=== PATIENT | female | born 1985 | race Asian ===

== ENCOUNTER 2016-05-01 11:15 | Inpatient (IN) | payer SELFPAY ==
[~2016-05-01] VITALS: Ht 157.5 cm; Wt 72.6 kg
[2016-05-01] MEDS ORDERED: LACTATED RINGERS 1,000 ML IV SCH (11:34)
[2016-05-01] MEDS ORDERED: MORPHINE SULFATE 10 MG/ML SYR IVP PRN (11:35)
[2016-05-01] MEDS ORDERED: CARBOPROST 250 MCG/ML AMP IM PRN (11:35)
[2016-05-01] MEDS ORDERED: OXYTOCIN 10 UNITS/ML VIAL IM SCH (11:35)
[2016-05-01] MEDS ORDERED: METHYLERGONOVINE 0.2 MG/ML AMP IM PRN ×2 (11:35→18:35)
[2016-05-01] MEDS ORDERED: PROMETHAZINE 25 MG/ML VIAL IVP PRN (11:35)
[2016-05-01] MEDS ORDERED: MORPHINE SULFATE 10 MG/ML SYR ONE (11:46)
[2016-05-01] MEDS ORDERED: PROMETHAZINE 25 MG/ML VIAL ONE (11:46)
[2016-05-01] MEDS ORDERED: ROPIVACAINE 0.2%/NS PREMIX 250 ML EPI ONE (12:05)
[2016-05-01 12:19] LABS: BASOPHILS # (AUTO) 0.1 K/uL (0.00-0.22); BASOPHILS % (AUTO) 1.1 % (0.0-2.0); EOSINOPHILS # (AUTO) 0.1 K/uL (0-0.4); EOSINOPHILS % (AUTO) 0.7 % (0.0-4.0); HEMATOCRIT 35.8 % (36-48); HEMOGLOBIN 11.8 g/dL (12.0-16.0); LYMPHOCYTES # (AUTO) 1.7 K/uL (2.5-16.5); LYMPHOCYTES % (AUTO) 13.1 % (20.5-51.1); MEAN CORPUSCULAR HEMOGLOBIN 29 pg (27-31); MEAN CORPUSCULAR HGB CONC 33 g/dL (33-37); MEAN CORPUSCULAR VOLUME 89 fL (80-94); MONOCYTES % (AUTO) 7.7 % (1.7-9.3); NEUTROPHILS % (AUTO) 77.4 % (42.2-75.2); PLATELET COUNT (AUTO) 268 K/uL (140-450); RED BLOOD CELL COUNT(AUTO) 4.04 MIL/uL (4.20-5.40); WHITE BLOOD COUNT (AUTO) 12.9 K/uL (4.8-10.8)
[2016-05-01 12:31] VITALS: BP 103/62
[2016-05-01 12:36] LABS: CALCIUM 8.4 mg/dL (8.5-10.1); CARBON DIOXIDE 27.2 mmol/L (21-32); CREATININE 0.7 mg/dL (0.6-1.3); POTASSIUM 3.2 mmol/L (3.5-5.1)
[2016-05-01 12:41] LABS: HIV RAPID SCREEN NON-REACTIVE (NON REACTIV)
[2016-05-01 12:43] LABS: ALBUMIN 2.5 g/dL (3.4-5.0); TOTAL BILIRUBIN 0.2 mg/dL (0.0-1.0); TOTAL PROTEIN, SERUM 6.4 g/dL (6.4-8.2)
[2016-05-01] MEDS ORDERED: OXYTOCIN 20 UNITS/LR PREMIX 1,000 ML IV SCH (16:00)
[2016-05-01] MEDS ORDERED: OXYTOCIN 10 UNITS/ML VIAL ONE (17:09)
[2016-05-01] MEDS ORDERED: OXYTOCIN 20 UNITS/LR PREMIX 1,000 ML IV ONE (17:09)
[2016-05-01 18:31] LABS: APPEARANCE,URINE CLEAR (CLEAR); BILIRUBIN,URINE NEGATIVE (NEGATIVE); BLOOD, URINE NEGATIVE (NEGATIVE); COLOR,URINE YELLOW (YELLOW); LEUKOCYTE ESTERASE ,URINE NEGATIVE (NEGATIVE); NITRITE, URINE NEGATIVE (NEGATIVE); PROTEIN,URINE TRACE (NEGATIVE); UGLUCOSE NEGATIVE (NEGATIVE); UROBILINOGEN,URINE 0.2 EU/dL (0.2 - 1)
[2016-05-01] MEDS ORDERED: TEMAZEPAM 15 MG CAP PO PRN (18:35)
[2016-05-01] MEDS ORDERED: oxyCODONE/APAP 5/325 MG 1 TAB TAB PO PRN (18:35)
[2016-05-01] MEDS ORDERED: WITCH HAZEL 40 PAD PACKAGE TP PRN (18:35)
[2016-05-01] MEDS ORDERED: BENZOCAINE/MENTHOL 20%-0.5% 60 GM CAN TP PRN (18:35)
[2016-05-01] MEDS ORDERED: MEASLES, MUMPS, AND RUBELLA 1 VIAL SQVAC PRN (18:35)
[2016-05-01] MEDS ORDERED: IBUPROFEN 800 MG TAB PO PRN (18:35)
[2016-05-01 18:45] LABS: BACTERIA,URINE RARE /HPF (None Seen); RBC,URINE 0-5 (RARE) /HPF (0-5); SQUAMOUS EPITHELIAL CELL,UR RARE /LPF (0-3 (FEW)); WBC,URINE 0-5 (RARE) /HPF (0-5)
[2016-05-01] MEDS ORDERED: DOCUSATE SOD/SENNA 50/8.6 MG 1 TAB PO SCH (21:00)
[2016-05-01] MEDS ORDERED: INFLUENZA VIRUS VACCINE QUAD 0.5 ML SYR IMVAC SCH (22:00)
[2016-05-01] MEDS ORDERED: BETHANECHOL 25 MG TAB PO SCH (23:45)
[2016-05-01] MEDS ORDERED: BETHANECHOL 25 MG TAB PO PRN (23:45)
[2016-05-02] MEDS: HYDROcodone/APAP 5/325 MG 1 TAB TAB PO PRN ×4 (00:03→19:41)
[2016-05-02 06:28] LABS: HEMATOCRIT 34.1 % (36-48)
--- NOTE | 2016-05-02 08:23 | NUR ---
PATIENT HAS BEEN SCREENED AND CATEGORIZED LOW NUTRITION RISK. PATIENT WILL BE SEEN WITHIN 7 DAYS OF ADMISSION. 05/08/[address]
[2016-05-02 09:24] LABS: RAPID PLASMA REAGIN NON-REACTIVE (Non Reactiv)
[2016-05-03] MEDS: HYDROcodone/APAP 5/325 MG 1 TAB TAB PO PRN (01:00)
== END 2016-05-03 23:00 | disposition home or self-care (01) | DRG 775 ==
LOC: MLD 11:15 → MFCC 21:50
PROVIDERS: ADMIT Obstetrics & Gynecology; ATTEND Obstetrics & Gynecology
PROC: 10E0XZZ Delivery of Products of Conception, External Approach (ICD-10-PCS; principal; 2016-05-01)
PROC: 0W8NXZZ Division of Female Perineum, External Approach (ICD-10-PCS; 2016-05-01)
PROC: 00HU33Z Insertion of Infusion Device into Spinal Canal, Percutaneous Approach (ICD-10-PCS; 2016-05-01)
PROC: 3E0R3CZ (ICD-10-PCS; 2016-05-01)
DX: O77.0 Labor and delivery complicated by meconium in amniotic fluid (principal); Z3A.39 39 weeks gestation of pregnancy; Z37.0 Single live birth; Z28.89 Immunization not carried out for other reason
CPT/HCPCS: 36415; 51702; 59409; 80053; 81001; 85018; 85025; 86592; 86886; 86900; 86901; J2270; J2550; J2590; J2795